=== PATIENT | female | born 1970 | race Caucasian/White ===

== ENCOUNTER 2016-11-20 20:22 | Emergency (ER) | payer OTHER ==
[~2016-11-20] VITALS: Ht 175.3 cm; Wt 75.4 kg
[~2016-11-20 20:22] MED LIST: A & D15 GM; ABILIFY15 MG; ALPRAZOLAM0.5 MG; AMBIEN CR12.5 MG PO; AMBIEN CR6.25 MG PO; Abilify PO; BENADRYL ITCH28.3 GM TP; BENADRYL25 MG PO; BUTALB-APAP-CA1 EACH PO; CLEOCIN300 MG PO; CLINDAMYCIN HC300 MG PO; CLONIDINE HCL0.1 MG PO; CONCERTA36 MG; CONCERTA36 MG PO; CYANOCOBAL1000 MCG/2 IM; CYMBALTA60 MG; CYMBALTA60 MG PO; Cymbalta PO; DUONEB 2.5-0.5 M3 ML AEROSOL; FOCALIN XR20 MG PO; GABAPENTIN300 MG; K-Dur PO; LEVAQUIN750 MG PO; LEVOFLOXACIN750 MG PO; Lasix PO; METHADONE 22 MG/1 ML PO; METHADONE10 MG PO; MONISTAT 745 GM VG; MYCOSTATIN 100,60 ML PO; NEURONTIN300 MG PO; NEURONTIN400 MG PO; NICOTINE PATCH1 EAC1 TD; NICOTINE PATCH1 EAC2 TD; PAROXETINE HCL20 MG; PAXIL20 MG PO; PAXIL40 MG PO; PERCOCET 5/31 TABLET PO; PREDNISONE10 MG PO; PROAIR HFA8.5 GM IH; PROMETHAZINE HC25 M1 PO; Paxil PO; SEROQUEL50 MG PO; SUBOXONE 8 MG-2 MG S; TRAMADOL HCL50 MG; VENTOLIN HFA18 GM IH; WOMEN'S DAILY1 EAC1 PO; Xanax PO
[2016-11-20 22:09] LABS: BASOPHIL COUNT 0.1 K/uL (0-0.1); EOSINOPHIL (%) 4.9 % (0-5); EOSINOPHIL COUNT 0.5 K/uL (0-0.3); HEMATOCRIT 40.4 % (36.0-46.0); IMMATURE GRANULOCYTE (%) 0.2 % (0.0-0.7); INSTRUMENT ABS NEUTROPHIL CT 4.6 K/uL; LYMPHOCYTE COUNT 4.4 K/uL (1.0-2.8); MCH 27.7 PG (29.0-34.0); MCHC 32.2 G/DL (30.0-36.0); MCV 86.1 FL (83-99); MONOCYTE (%) 6.2 % (3-12); MONOCYTE COUNT 0.6 K/uL (0-0.8); NEUTROPHIL COUNT 4.6 K/uL (1.8-6.4); RBC DIS.WIDTH-CV 13.7 % (11.8-14.6); RBC DIS.WIDTH-SD 42.8 % (39-53); RED BLOOD COUNT 4.69 M/uL (3.80-5.20); WHITE BLOOD COUNT 10.2 K/uL (4.1-10.2)
[2016-11-20 22:17] LABS: CHLORIDE 105 mEq/L (99-109); POTASSIUM 4.2 mEq/L (3.7-5.4); SODIUM 140 mEq/L (136-147)
[2016-11-20 22:19] LABS: GLUCOSE 108 mg/dL (70-99)
[2016-11-20 22:20] LABS: ANION GAP 9 MEQ/L (2-14)
[2016-11-20 22:21] LABS: TOTAL BILIRUBIN 0.2 mg/dL (0.0-1.0)
[2016-11-20 22:22] LABS: ALKALINE PHOSPHATASE 115 IU/L (3-129)
[2016-11-20 22:23] LABS: GFR ESTIMATE (CALCULATED) > 59 mL/min/
[2016-11-20 22:24] LABS: UREA NITROGEN (BUN) 10 mg/dL (9-23)
[2016-11-20 22:26] LABS: LIPASE 19 U/L (1.0-51.0)
[2016-11-20 22:33] LABS: QUANTITATIVE HCG < 4.0 MIU/ML
[2016-11-20 22:48] LABS: PLATELET COUNT 200 K/uL (156-360)
[2016-11-20 23:25] LABS: ADD MIUA? YES; BILIRUBIN NEGATIVE; BLOOD NEGATIVE; COLOR YELLOW ((YELLOW)); GLUCOSE (STRIP) NEGATIVE; KETONES NEGATIVE; LEUKOCYTES LARGE; NITRITE NEGATIVE; PROTEIN (STRIP) NEGATIVE; SPECIFIC GRAVITY 1.014 (1.000-1.030); UROBILINOGEN 0.2 MG/DL (0.2-1.0)
[2016-11-20] MEDS ORDERED: BENTYL20 MG PO (23:25)
[2016-11-20] MEDS ORDERED: PERCOCET 5/31 TABLET PO (23:25)
[2016-11-20] MEDS ORDERED: PEPCID20 MG PO (23:25)
[2016-11-20 23:37] LABS: BACTERIA RARE /HPF; EPITHELIAL CELLS 1+ /HPF; MUCUS TRACE /LPF; RED BLOOD CELLS 0-5 /HPF (0-5)
[2016-11-20] MEDS ORDERED: MACROBID100 MG PO (23:44)
[2016-11-20 23:56] VITALS: BP 135/70
== END 2016-11-21 00:05 | disposition home or self-care (01) ==
LOC: RME 20:22 → EME 20:22 → RME 11-21 00:05
PROVIDERS: Physician Assistant
DX: N30.00 Acute cystitis without hematuria (principal); R10.11 Right upper quadrant pain; I10 Essential (primary) hypertension; J44.9 Chronic obstructive pulmonary disease, unspecified; R56.9 Unspecified convulsions; F32.9 Major depressive disorder, single episode, unspecified; F17.200 Nicotine dependence, unspecified, uncomplicated; Z88.0 Allergy status to penicillin
CPT/HCPCS: 74176; 76705; 80053; 81003; 83605; 83690; 84702; 85025; 99281; 99284; J0780; J1200; J7030; J7050; S0028

== ENCOUNTER 2017-04-25 20:49 | Emergency (ER) | payer OTHER ==
[~2017-04-25] VITALS: Ht 175.3 cm; Wt 111.0 kg
[~2017-04-25 20:49] MED LIST changes: +BENTYL20 MG PO; +MACROBID100 MG PO; +PEPCID20 MG PO
[2017-04-25] MEDS ORDERED: ZITHROMAX Z-PA250 MG PO (22:21)
[2017-04-25 22:43] VITALS: BP 139/102
== END 2017-04-25 22:44 | disposition home or self-care (01) ==
LOC: EME → EDBD 20:49 → EME 22:44
DX: J44.0 Chronic obstructive pulmonary disease with (acute) lower respiratory infection (principal); J20.9 Acute bronchitis, unspecified; J44.1 Chronic obstructive pulmonary disease with (acute) exacerbation; I10 Essential (primary) hypertension; R56.9 Unspecified convulsions; F32.9 Major depressive disorder, single episode, unspecified; F31.9 Bipolar disorder, unspecified; Z87.891 Personal history of nicotine dependence; Z91.040 Latex allergy status; Z88.0 Allergy status to penicillin; Z88.2 Allergy status to sulfonamides; Z88.6 Allergy status to analgesic agent; Z88.5 Allergy status to narcotic agent; Z88.8 Allergy status to other drugs, medicaments and biological substances
CPT/HCPCS: 93005; 99281; 99284

== ENCOUNTER 2017-11-13 12:49 | Emergency (ER) | payer OTHER ==
[~2017-11-13] VITALS: Ht 177.8 cm; Wt 110.5 kg
[~2017-11-13 12:49] MED LIST changes: +ZITHROMAX Z-PA250 MG PO
[2017-11-13 13:58] LABS: HEMOGLOBIN 12.6 G/DL (11.9-15.5); MCH 27.9 PG (29.0-34.0); MCHC 34.1 G/DL (30.0-36.0); PLATELET COUNT 266 K/uL (156-360); RBC DIS.WIDTH-CV 13.2 % (11.8-14.6); RBC DIS.WIDTH-SD 39.3 % (39-53); RED BLOOD COUNT 4.51 M/uL (3.80-5.20)
[2017-11-13 14:06] LABS: CHLORIDE 103 mEq/L (99-109); SODIUM 141 mEq/L (136-147)
[2017-11-13 14:08] LABS: GLUCOSE 103 mg/dL (70-99)
[2017-11-13 14:12] LABS: CREATININE 1.1 mg/dL (0.6-1.3); GFR ESTIMATE (CALCULATED) 56 mL/min/
[2017-11-13 14:13] LABS: UREA NITROGEN (BUN) 18 mg/dL (9-23)
[2017-11-13 15:34] LABS: APPEARANCE SL.HAZY ((CLEAR)); BILIRUBIN NEGATIVE; BLOOD NEGATIVE; COLOR YELLOW ((YELLOW)); GLUCOSE (STRIP) NEGATIVE; KETONES NEGATIVE; LEUKOCYTES NEGATIVE; NITRITE NEGATIVE; PROTEIN (STRIP) 30; SPECIFIC GRAVITY 1.032 (1.000-1.030); UROBILINOGEN 0.2 MG/DL (0.2-1.0)
[2017-11-13 15:44] LABS: AMPHETAMINE NEGATIVE (500 ng/mL); BARBITURATES NEGATIVE (200 ng/mL); BENZODIAZEPINES PRESUMPTIVE POSITIVE (150 ng/mL); BUPRENORPHINE NEGATIVE (10 ng/mL); COCAINE NEGATIVE (150 ng/mL); METHADONE PRESUMPTIVE POSITIVE (200 ng/mL); METHAMPHETAMINE NEGATIVE (500 ng/mL); OPIATES (MORPHINE) NEGATIVE (100 ng/mL); OXYCODONE NEGATIVE (100 ng/mL); PHENCYCLIDINE NEGATIVE (25 ng/mL); PROPOXYPHENE PRESUMPTIVE POSITIVE (300 ng/mL); THC CANNABINOIDS NEGATIVE (50 ng/mL); TRICYCLIC ANTIDEPRESSANTS NEGATIVE (300 ng/mL)
[2017-11-13 16:04] LABS: BACTERIA 1+ /HPF; EPITHELIAL CELLS 1+ /HPF; MUCUS 1+ /LPF; RED BLOOD CELLS 0-5 /HPF (0-5); UCUL ADDED? NO; WHITE BLOOD CELLS 0-5 /HPF (0-5)
[2017-11-13] MEDS ORDERED: LEVAQUIN750 MG PO (16:19)
[2017-11-13] MEDS ORDERED: PHENADOZ12.5 MG PR (16:20)
[2017-11-13 16:29] LABS: BENZODIAZEPINES, URINE SCREEN Negative (200 ng/mL)
[2017-11-13 16:48] VITALS: BP 113/51
== END 2017-11-13 16:48 | disposition home or self-care (01) ==
LOC: EME 12:49
PROVIDERS: Emergency Medicine
DX: N39.0 Urinary tract infection, site not specified (principal); I10 Essential (primary) hypertension; J45.909 Unspecified asthma, uncomplicated; F32.9 Major depressive disorder, single episode, unspecified; F43.10 Post-traumatic stress disorder, unspecified; Z86.69 Personal history of other diseases of the nervous system and sense organs; Z88.5 Allergy status to narcotic agent; Z88.2 Allergy status to sulfonamides; Z88.0 Allergy status to penicillin; Z88.6 Allergy status to analgesic agent; Z87.891 Personal history of nicotine dependence
CPT/HCPCS: 80048; 81003; 84999; 85027; 93005; 99281; 99284